=== PATIENT | female | born 1965 | race Caucasian/White ===

== ENCOUNTER 2018-11-10 00:02 | Emergency (ER) | payer OTHER ==
[~2018-11-10] VITALS: Ht 167.6 cm; Wt 77.3 kg
[2018-11-10] MEDS ORDERED: ALOG25TA2 PO (00:13)
[2018-11-10] MEDS ORDERED: MELO-106 PO (00:13)
[2018-11-10] MEDS ORDERED: CYCL10 PO (00:13)
[2018-11-10] MEDS ORDERED: TIZA4TAB6 PO (00:13)
[2018-11-10] MEDS ORDERED: INSU100I26 SQ (00:13)
[2018-11-10] MEDS ORDERED: ATOR20TA86 PO (00:13)
[2018-11-10] MEDS ORDERED: METF-960 PO (00:13)
[2018-11-10] MEDS ORDERED: KETOROLAC TROMETHAMINE 30 MG/ML VIAL IM ONE (01:30)
[2018-11-10 02:20] VITALS: BP 120/84
== END 2018-11-10 03:11 | disposition home or self-care (01) ==
LOC: EMS 00:02
DX: J40 Bronchitis, not specified as acute or chronic (principal); R07.89 Other chest pain; F17.210 Nicotine dependence, cigarettes, uncomplicated; E11.9 Type 2 diabetes mellitus without complications; Z79.899 Other long term (current) drug therapy; Z79.84 Long term (current) use of oral hypoglycemic drugs
CPT/HCPCS: 71046; 82962; 93005; 96372; 99283; J1885